=== PATIENT | female | born 1955 | race Caucasian/White ===

== ENCOUNTER → 2018-05-29 | Outpatient (CLI) | payer OTHER ==
[~2018-05-29] MED LIST: REGADENOSON 0.4 MG/5 ML DISP.SYRIN. IV ONE
--- NOTE | 2018-05-29 09:32 | PCVCIMAG ---
APPROVED REPORT Study performed: 05/29/2018 07:45:23 EXAM: Comprehensive 2D, Doppler, and color-flow Echocardiogram Patient Location: Echo lab Status: routine BSA: 1.73 HR: 84 bpmBP: 122/70 mmHg Rhythm: NSR Other Information Study Quality: Good Risk Factors: Cardiac Risk Factors: Hyperlipidemia, HTN Indications Dyspnea Family history of CAD 2D Dimensions IVSd: 12.10 (7-11mm)LVOT Diam: 19.14 (18-24mm) LVDd: 36.24 mm PWd: 11.34 (7-11mm)Ascending Ao: 35.16 (22-36mm) LVDs: 26.70 (25-40mm) Left Atrium: 31.56 (27-40mm) Aortic Root: 30.09 mm LV Single Plane 4CH: 64.84 % LV Single Plane 2CH: 74.90 % Biplane EF: 70.5 % Volumes Left Atrial Volume (Systole) Single Plane 4CH: 22.29 mLSingle Plane 2CH: 37.16 mL LA ESV Index: 18.00 mL/m2 Aortic Valve AoV Peak Jose Juan.: 1.41 m/s AO Peak Gr.: 7.95 mmHg Mitral Valve E/A Ratio: 0.8 MV Decel. Time: 195.38 ms MV E Max Jose Juan.: 0.76 m/s MV A Jose Juan.: 0.93 m/s IVRT: 138.41 ms TDI E/Lateral E': 8.44E/Medial E': 9.50 Medial E' Jose Juan.: 0.08 m/s Lateral E' Jose Juan.: 0.09 m/s Pulmonary Valve PV Peak Gr.: 4.06 mmHg Pulmonary Vein P Vein S: 0.74 m/sP Vein A: 0.30 m/s P Vein D: 0.35 m/sP Vein A Dur.: 90.0 msec P Vein S/D Ratio: 2.11 Tricuspid Valve TR Peak Jose Juan.: 2.45 m/s TR Peak Gr.: 23.93 mmHg Left Ventricle The left ventricle is normal size. There is normal LV segmental wall motion. There is normal left ventricular wall thickness. Left ventricular systolic function is normal. The left ventricular ejection fraction is within the normal range. LVEF is 60-65%. The left ventricular diastolic function is normal. Right Ventricle The right ventricle is normal size. The right ventricular systolic function is normal. Atria The left atrium size is normal. The right atrium size is normal. Aortic Valve The aortic valve is normal in structure. No aortic regurgitation is present. There is no aortic valvular stenosis. Mitral Valve The mitral valve is normal in structure. There is no mitral valve regurgitation noted. No evidence of mitral valve stenosis. Tricuspid Valve The tricuspid valve is normal in structure. Trace tricuspid regurgitation. Pulmonary artery pressure is 31mmHg. Pulmonic Valve The pulmonary valve is normal in structure. Trace pulmonic regurgitation. Great Vessels The aortic root is normal in size. IVC is normal in size and collapses >50% with inspiration. Pericardium There is no pericardial effusion. <Conclusion> The left ventricle is normal size. LVEF is 60-65%. The aortic valve is normal in structure. No aortic regurgitation is present. The mitral valve is normal in structure. There is no mitral valve regurgitation noted. The tricuspid valve is normal in structure. Trace tricuspid regurgitation. Pulmonary artery pressure is 31mmHg. The pulmonary valve is normal in structure. Trace pulmonic regurgitation. There is no pericardial effusion.
--- NOTE | 2018-05-29 11:54 | PCVCIMAG ---
APPROVED REPORT Imaging Protocol: Rest Tc-99m/Stress Tc-99m 1 day Study performed: 05/29/2018 08:57:32 Indication: Chest pain, Dyspnea, Abnormal EKG Patient Location: Out-Patient Stress Nurse: Martha Butterfield RN, Olamide Gupta RN [place] Tech:Leda SousaОЛЬГА dickinsonMT Ht: 5 ft 4 in Wt: 148 lbs BSA: 1.72 m2 HR: 93 bpm BP: 138/78 mmHg BMI: 25.40 Rhythm: NSR, T Wave Abn Medical History Medical History: HTN, Hyperlipidemia Medications: Albuterol, Cyclobenzaprine Allergies: Many - None relevant to this test Cardiac Risk Factors: Age Pretest Chest Pain Characteristics: No chest pain Exercise History: Indeterminate Resting Data Rest SPECT myocardial perfusion imaging was performed in supine position 45 minutes following the intravenous injection of 10.4 mCi of Tc-99m Sestamibi. Time of rest injection: 0830 Date: 05/29/2018 Administration Route: IV Administration Site: Right Hand Pharmacologic Stress Pharmacologic stress test was performed by injecting Regadenoson 0.4 mg IV push over 10-15 seconds immediately followed by the intravenous injection of 33.8 mCi of Tc-99m Sestamibi. Time of stress injection: 1000 Date: 05/29/2018 Administration Route: IV Administration Site: Right Hand Gated Stress SPECT was performed 45 minutes after stress injection. The images were gated to evaluate regional wall motion and calculate left ventricular ejection fraction. Stress Test Details Stress Test: Pharmacologic stress was paired with low level exercise. Reason for pharmacologic stress test: unable to tolerate treadmill. HRMax Heart Rate (APMHR): 157 bpm Resting HR: 93 bpmTarget HR (85% APMHR): 133 bpm Max HR Achieved: 142 bpm % of APMHR: 90 Recovery HR: 100 bpm BP Resting BP: 138/78 mmHg Max BP: 169/80 mmHg Recovery BP: 138/77 mmHg ECG Resting ECG: Sinus Rhythm, T Wave Abn Stress ECG: Sinus Tachycardia, ST Depression ST Change: Downsloping ST depression Maximum ST Deviation: 1 mm Recovery ECG: Sinus Rhythm, T Wave Abn Clinical Reason for Termination: Completed protocol Stress Symptoms: Chest pain, Dyspnea, Lightheaded Exercise duration: 4 min 00 sec Exercise capacity: 1.6 METs Symptoms resolved with caffeine. Nurse Comments Pt attempted Adam Protocol. Unable to walk after stage 1 d/t dyspnea and chest pain. Converted to walking Norma. See initial EKG imgages from aborted test - included. Stress ECG Conclusion 1. Adequate response to IV Lexiscan 2. Inadequate heart rate for ECG diagnosis Study Data Post stress, the left ventricular ejection was 82%.. SSS: 0 SRS: 1 SDS: 0 TID = 0.77. Perfusion There is a small area of mildly reduced uptake in the apical segment of the anterior wall which is seen on the stress images as well as the resting images. This area thickens and moves normally and is most consistent with attenuation artifact. Wall Motion Normal left ventricular wall motion. Nuclear Conclusion ECG Findings: non-diagnostic Clinical Findings: negative for ischemia Nuclear Findings: negative for ischemia Exercise Capacity: not assessed Left Ventricular Function: normal 1. Low risk study <Conclusion> 1. Adequate response to IV Lexiscan 2. Inadequate heart rate for ECG diagnosis
== END | disposition home or self-care (01) ==
LOC: PCVCIMAG 07:39
PROVIDERS: ATTEND Internal Medicine
DX: I10 Essential (primary) hypertension (principal); E78.5 Hyperlipidemia, unspecified; R06.02 Shortness of breath; R07.9 Chest pain, unspecified; R94.31 Abnormal electrocardiogram [ECG] [EKG]
CPT/HCPCS: 78452; 93017; 93306; A9500; J2785